=== PATIENT | male | born 1955 | race Caucasian/White ===

== ENCOUNTER 2023-06-28 19:25 | Emergency (ER) | payer OTHER, SELFPAY ==
[2023-06-28 19:29] VITALS: BP 134/82
[2023-06-28 21:09] VITALS: BMI 24.9
[2023-06-28 21:33] LABS: % Basophils 0.8 % (0-2); % Immature Granulocytes 0.3 % (0-0.5); % Lymphocytes 24.8 % (20.5-51.1); % Monocytes 12.1 % (1.7-9.3); Absolute Basophils 0.1 10^3/uL (0-0.2); Absolute Eosinophils 0.2 10^3/uL (0-0.7); Absolute Lymphocytes 2.4 10^3/uL (1.2-3.4); Absolute Monocytes 1.2 10^3/uL (0.1-0.6); Absolute Neutrophils 5.8 10^3/uL (1.4-6.5); Hemoglobin 15.2 g/dL (13.0-18.0); Mean Corp Hgb Conc. 34.5 g/dL (33.0-37.0); Mean Corpuscular Hgb 31.7 pg (27.0-31.0); Mean Corpuscular Volume 91.9 fL (80.0-94.0); Mean Platelet Volume 10.2 fL (7.4-10.4); Nucleated Red Blood Cells % 0 % (-); Platelet Count 216 10^3/uL (130-400); Red Blood Cell Count 4.79 10^6/uL (4.70-6.10); Red Cell Dist. Width 12.6 % (11.5-14.5); White Blood Cell Count 9.6 10^3/uL (4.8-10.8)
[2023-06-28 21:46] LABS: ALT (SGPT) 28 U/L (0-50); AST (SGOT) 34 U/L (17-59); Albumin 4.3 g/dl (3.5-5.0); Alkaline Phosphatase 92 U/L (38-126); Blood Urea Nitrogen 17 mg/dl (9-20); Calcium 9.7 mg/dl (8.4-10.2); Carbon Dioxide 27 mmol/L (22-30); Chloride 104 mmol/L (98-107); Estimated Creatinine Clearance 70 ml/min; Glucose 115 mg/dl (70-99); Potassium 3.8 mmol/L (3.5-5.1); Sodium 140 mmol/L (135-145); Total Bilirubin 0.8 mg/dl (0.2-1.3); Total Protein 6.7 g/dl (6.3-8.2); eGFR > 60.00
[2023-06-28 21:47] LABS: Lipase 86 U/L (23-300)
[2023-06-28 21:57] LABS: Troponin I < 0.012 ng/ml
[2023-06-28 23:00] VITALS: BP 123/75
--- NOTE | 2023-06-28 23:33 | ED.GENMED ---
History of Present Illness
General
Chief Complaint: Cardiac Symptoms
Source: patient
Exam Limitations: none
Time Seen by Provider: 06/28/23 21:11
Nursing documentation reviewed up to this point in time: agreed with
Travel History
Have you had any contact with someone who has COVID-19?: No
Do you have any symptoms of coronavirus? Fever > 100 degrees, chills, cough, shortness of breath, sore throat, loss of taste or smell, muscle aches, or headache?: No
History of Present Illness
History of Present Illness:
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 Chest pain described as sharp, associated with heart racing and slowing down sensation, lasting anywhere from minutes to an
hour. Denies associated nausea or vomiting. Denies shortness of breath. Denies dizziness. Denies diaphoresis. Patient spoke with his telecommunications field technician who recommended patient come to ED for an evaluation. At the time of evaluation ED, patient
states that he does not have chest pain. Chest pain has come on over the past 2 weeks, both at rest and with exertion. Chest pain is different from 10 years ago when he had MD.
Past History
Past History
ED Past Medical History: CAD, HTN, Hypercholesterolemia and MD
ED Past Surgical History: Cardiac (CABG)
Social History
Tobacco: Non-smoker
Alcohol: None
Drug: None
Living: with family
Employment: Employed
Review of Systems
Review of Systems
Allergies reviewed?: Yes
All Other Systems: ROS reviewed and negative except as documented in HPI and ROS
Constitutional: Reports no symptoms
EENT: Reports no symptoms
Respiratory: Reports no symptoms
Cardiac: Reports chest pain
ABD/GI: Reports no symptoms
: Reports no symptoms
Musculoskeletal: Reports no symptoms
Skin: Reports no symptoms
Neurological: Reports no symptoms
Phy Exam
Physical Exam
Physical Exam:
Physical Exam
General: no apparent distress, not acutely ill. afebrile
Head: nc/at. eomi
Neck: supple. no meningeal signs.
Heart: s1/s2 regular rate and rhythm, no murmur. equal radial pulses.
Lungs: no acute respiratory distress. clear bilaterally
Abdomen: normal bowel sounds. not tender.
Neuro: alert and oriented. no focal neurological deficits
Skin: no rash
Psychiatric: well kept. interactive and cooperative
Extremities: no edema. no calf tenderness.
Scores
Heart Score for Chest Pain Patients
STEMI patient?: No
History: Slightly or Non-Suspicious
ECG: Normal
Age: >/= 65 years
Risk Factors: >/= 3 Risk Factors or History of CAD
Troponin: </= Normal Limit
Heart Score for Chest Pain Patients: 4
Heart Score Risk: 20.3% MACE over next 6 weeks
Course
Orders/Labs/Results
Orders:
Orders
06/28/23 19:32
Electrocardiogram (*1) Urgent
Reason for Study: Chest Pain
EKG- Treatment ONCE
06/28/23 21:21
CMP [Comprehensive Metabolic Panel] Urgent
Complete Blood Count/With Diff Urgent
Lipase Urgent
Troponin I Urgent
06/28/23 23:28
EKG- Treatment ONCE
06/29/23 00:00
Electrocardiogram (*1) Urgent
Reason for Study: Chest Pain
06/29/23 00:07
Troponin I Urgent
Abnormal Lab Results
06/28/23
21:21
MCH 31.7 H pg
(27.0-31.0)
Absolute Monos (auto) 1.2 H 10^3/uL
(0.1-0.6)
Monocytes % 12.1 H %
(1.7-9.3)
Glucose 115 H mg/dl
(70-99)
06/28/23 21:21
06/28/23 21:21
Vital Signs
Initial and Last Documented VS:
Initial Vital Signs
Temp Pulse Resp BP Pulse Ox
98.3 F 92 22 134/82 95
06/28/23 19:29 06/28/23 19:29 06/28/23 19:29 06/28/23 19:29 06/28/23 19:29
Last Documented Vital Signs
Temp Pulse Resp BP Pulse Ox
98.3 F 61 19 129/77 95
06/28/23 19:29 06/29/23 00:45 06/29/23 00:45 06/29/23 00:00 06/28/23 23:45
MDM/Problems Addressed
MDM/Problems Addressed:
Patient with an unremarkable workup in ED, including repeat blood work and EKG. In addition, patient remains afebrile, hemodynamically stable, and nontoxic-appearing, without any recurrent chest pain. As such, decision made to discharge patient
home at this time, with recommendation to contact his telecommunications field technician at [facility] in the morning for an urgent outpatient consultation. Advised return to ED with recurrent symptoms.
*EKG
Interpreted by ED Provider?: Yes
EKG Intrepretation Date: 06/28/23
Heart Rate: 80
Rate: normal
Rhythm: sinus
[place]: normal axis
Interval: normal interval
QRS Pattern: normal QRS
*Critical Care Note
Total Time (30-74mins, 75-104mins- exclusive of procedures): Not Applicable
ED Attending Note
-
Portions of this chart may have been created with voice recognition software.� Occasional wrong word or��sound alike� substitutions may have occurred due to the inherent limitations of voice recognition software.
Discharge Plan
Departure
Patient Disposition: Home (Routine Discharge)
Date of Disposition: 06/29/23
Time of Disposition: 00:59
Patient with high blood pressure during this ER visit?: Yes
Discharge Problem:
Chest pain
Instructions: Chest Pain (DC)
Prescriptions:
No Action
Aspirin :
81 mg PO DAILY
Atorvastatin
10 mg PO .EVERYOTHER DAY
Metoprolol
50 mg PO DAILY
Pantoprazole
40 mg PO DAILY
Plavix
75 mg PO DAILY
Zetia:
10 mg PO .EVERYOTHER DAY
hydrocodone-acetaminophen 1 TABLET tablet
1 tab PO Q4HPRN PRN (Reason: pain) Qty: 7 0RF
Referrals:
Rashad Scott MD [Family Provider] -
Activity Restrictions/Additional Instructions:
As discussed, please follow-up with your telecommunications field technician for further evaluation and treatment.
Interventions
Interventions:
*Risk Screen - Suicide Last Done: 06/28/23 19:29
*General Assessment Last Done: 06/28/23 21:09
*Neglect/Abuse Screening Last Done: 06/28/23 19:29
ED- Fall Risk Assessment Last Done: 06/28/23 21:09
*ED COVID-19 Vaccine History Last Done: 06/28/23 21:09
*Nursing Disposition Last Done: 06/29/23 01:08
ED- Pulmonary Assessment Last Done: 06/28/23 21:09
ED- Cardiac Assessment Last Done: 06/28/23 21:09
Discharge Date and Time
Discharge Date/Time: 06/29/23 01:11
Print Language: ANGOLAN
[2023-06-29] VITALS: BP 129/77
[2023-06-29 00:49] LABS: Troponin I < 0.012 ng/ml
== END 2023-06-29 01:11 | disposition home or self-care (01) ==
LOC: EMR 19:25
PROVIDERS: EMERGENCY PHYSICIAN Emergency Medicine; FAMILY PHYSICIAN Family Medicine
DX: R07.89 Other chest pain (principal); M25.512 Pain in left shoulder; R42 Dizziness and giddiness; I25.10 Atherosclerotic heart disease of native coronary artery without angina pectoris; I10 Essential (primary) hypertension; E78.00 Pure hypercholesterolemia, unspecified; I25.2 Old myocardial infarction; Z95.1 Presence of aortocoronary bypass graft; Z95.5 Presence of coronary angioplasty implant and graft; Z86.16 Personal history of COVID-19; Z79.82 Long term (current) use of aspirin; Z79.02 Long term (current) use of antithrombotics/antiplatelets; Z88.8 Allergy status to other drugs, medicaments and biological substances; Z91.048 Other nonmedicinal substance allergy status
CPT/HCPCS: 99284; 80053; 83690; 84484; 85025; 93005